=== PATIENT | female | born 1985 | race Two or more races ===

== ENCOUNTER 2020-01-06 10:30 | Inpatient (IN) | payer OTHER ==
[2020-01-06] MEDS ORDERED: CITRIC ACID/SODIUM CITRATE 30 ML UNIT-DOSE CUP PO ONE ×2 (11:15→14:29)
[2020-01-06] MEDS ORDERED: ELECTROLYTE-148 SOLN 500 ML IV SCH (11:15)
[2020-01-06 11:38] VITALS: BMI 24.9
[2020-01-06] MEDS ORDERED: ELECTROLYTE-148 SOLN 1,000 ML IV SCH (11:45)
[2020-01-06] MEDS ORDERED: OXYTOCIN 20 UNITS in 0.9% NS 20 UNIT/1,000 ML INFUS.BAG IV ONE ×2 (12:53→15:10)
[2020-01-06] MEDS ORDERED: ePHEDrine SULFATE 50 MG/1 ML AMPULE ONE (13:03)
[2020-01-06] MEDS ORDERED: morphine SULFATE/PF 0.5 MG/ML (2cc Syringe - QUVA) ONE (13:03)
[2020-01-06] MEDS ORDERED: IBUPROFEN 800 MG/8 ML IJ IVPB PRN (14:24)
[2020-01-06] MEDS ORDERED: SENNOSIDES/DOCUSATE COMBO (SENNA PLUS) TABLET (UD) PO PRN (14:24)
[2020-01-06] MEDS ORDERED: METHYLERGONOVINE MALEATE 0.2 MG/1 ML AMP IM PRN (14:24)
[2020-01-06] MEDS ORDERED: oxyCODONE HCL 5 MG TABLET PO PRN ×2 (14:24)
[2020-01-06] MEDS ORDERED: morphine SULFATE/PF 0.5 MG/ML (2cc Syringe - QUVA) EP ONE (14:25)
--- NOTE | 2020-01-06 14:33 | HP ---
Past Medical History - Admission Chief Complaint: repeat lt c s , btl History of Present Illness: none History Source: Patient Limitations to Obtaining History: No Limitations - Past Medical History FACETER: No: Alzheimer's, CVA, Dementia, Migraine, Multiple Sclerosis, Peripheral Neuropathy, Parkinson's, Seizure, Syncope, TIA, Vertigo, Other Cardiovascular: No: AFIB, Aneurysm, Aortic Insufficiency, Aortic Stenosis, CAD, CHF, Deep Vein Thrombosis, HTN, Hyperlipdemia, OK, Mitral Insufficiency, Mitral Stenosis, Murmur, Pulmonary Hypertension, Other Pulmonary: No: Asthma, Bronchitis, Cancer, COPD, O2 Dependent, Pneumonia, Previously Intubated, Pulmonary Embolus, Pulmonary Fibrosis, Sleep Apnea, Other Gastrointestinal: No: Ascites, Cancer, Constipation, Crohn's Disease, Diverticulitis, Diverticulosis, Esophageal Varices, Gastritis, GERD, GI Bleed, Hemorrhoids, Hiatal Hernia, Inflamatory Bowel Disease, Irritable Bowel Disease, Pancreatitis, Peptic Ulcer Disease, Ulcerative Colitis, Other Hepatobiliary: No: Cirrhosis, Cholelithiasis, Cholecystitis, Choledocholithiasis , Hepatitis A, Hepatitis B, Hepatitis C, Other Renal/: No: Renal Failure, Renal Inusuff, BPH, Cancer, Hematuria, Hemodialysis , Neurogenic Bladder, Renal Calculi, UTI, Other Reproductive: No: Ectopic , Endometriosis, Fibroids, PID, Polycystic Ovary Syndrome, Postmenopausal, Other ...: 2 ...Para: 1 ...Term: 1 ...: 0 ...Spon : 0 ...EDC by Sono: 01/13/20 Heme/Onc: No: Anemia, B12 Deficiency, Bleeding Disorder, Cancer, Current Chemotherapy, Current Radiation Therapy, Hemochromatosis, Hypercoaguable State, Myeloproliferative Synd, Sickle Cell Disease, Sickle Cell Trait, Thrombocytopenia, Other Infectious Disease: No: AIDS, C-Diff, Herpes Zoster, HIV, MRSA, STD's, Tuberculosis, VREF, Other Psych: No: Addictions, Anxiety, Bipolar, Depression, Panic, Psychosis, Schizophrenia, Other Musculoskeletal: No: Bursitis, Chronic low back pain, Hemiparesis, Hemiplegia, Osteoarthritis, Paraplegia, Other Rheumatology: No: Fibromyalgia, Gout, Lupus, Rheumatoid Arthritis, Sarcoidosis, Vasculitis, Other ENT: No: Allergic Rhinitis, Sinusitis, Other Endocrine: No: Thong's Disease, Jaylon's Disease, Diabetes Insipidus, Diabetes Mellitus, Hyperparathyroidism, Hyperthyroidism, Hypothyroidism, Osteopenia, SIADH, Other Dermatology: No: Basal Cell, Cellulitis, Eczema, Melanoma, Psoriasis, Squamous Cell, Other - Past Surgical History Past Surgical History: Yes: Hx Myomectomy: No Hx Transabdominal Cerclage: No - Advance Directives Advance Directives: Yes: Living Will - Smoking History Smoking history: Never smoked Have you smoked in the past 12 months: No - Alcohol/Substance Use Hx Alcohol Use: No History of Substance Use: reports: None - Social History Usual Living Arrangement: Yes: With Significant Other Do you think of yourself as: Straight/Heterosexual ADL: Independent History of Recent Travel: No Home Medications - Allergies Allergies/Adverse Reactions: Allergies Allergy/AdvReac Type Severity Reaction Status Date / Time No Known Allergies Allergy Verified 01/06/20 11:08 - Home Medications Home Medications: Ambulatory Orders Vitamins (Sjr) - 1 tab PO DAILY 01/06/20 Family Medical History Family History: Denies Review of Systems - Review of Systems Constitutional: reports: No Symptoms Eyes: reports: No Symptoms HENT: reports: No Symptoms Neck: reports: No Symptoms Cardiovascular: reports: No Symptoms Respiratory: reports: No Symptoms Gastrointestinal: reports: No Symptoms Genitourinary: reports: No Symptoms Breasts: reports: No Symptoms Reported Musculoskeletal: reports: No Symptoms Integumentary: reports: No Symptoms Neurological: reports: No Symptoms Endocrine: reports: No Symptoms Hematology/Lymphatic: reports: No Symptoms Psychiatric: reports: No Symptoms Physical Exam - Maternity Constitutional: Yes: Well Nourished, No Distress, Calm Eyes: Yes: WNL, Conjunctiva Clear, EOM Intact HENT: Yes: WNL, Atraumatic, Normocephalic Neck: Yes: WNL, Supple, Trachea Midline Cardiovascular: Yes: WNL, Regular Rate and Rhythm Lungs: Clear to auscultation Breast(s): Yes: WNL - Abdominal Exam/OB Fundal Height: 38 Number of Fetuses: Single Presentation: Vertex Contractions: Yes Regularity: Irregular Intensity: Unaware Monitor Mode: External Heart Rate Location: [facility] Category: I Accelerations: Uniform Decelerations: None - Vaginal Exam/OB Vaginal Bleediing: No Speculum Exam: No Dilatation (cm): 1 Effacement (%): 50 Amniotic Membrane Status: Intact Presentation: Vertex/Position Station: -2 - Physical Exam Musculoskeletal: Yes: WNL Extremities: Yes: WNL Edema: Yes Edema: LUE: 1+, RUE: 1+, LLE: 1+, RLE: 1+ Integumentary: Yes: WNL Deep Tendon Reflex Grade: Normal +2 ...Motor Strength: WNL Psychiatric: Yes: WNL, Alert, Oriented Hemorrhage Risk Assessment - Risk Factors High Risk Factors: Yes: None Risk Score: 0 Risk Level: Low Risk Assessment/Plan for repeat lt c s , btl
--- NOTE | 2020-01-06 14:34 | OP ---
Operative Note - Note: Operative Date: 01/06/20 Pre-Operative Diagnosis: repeat lt c s , btl Operation: same Post-Operative Diagnosis: Same as Pre-op Surgeon: Pedro Valentine Toolsmith: Rl Damon Anesthesiologist/WATERPROOFING SUPERVISOR: Sobeida Taylor MD Anesthesia: Spinal Estimated Blood Loss (mls): 600 (no complications ) Operative Report Dictated: Yes
[2020-01-06] MEDS ORDERED: ONDANSETRON 4 MG/2 ML VIAL ONE (15:10)
[2020-01-06] MEDS: ONDANSETRON 4 MG/2 ML VIAL IVPUSH PRN ×2 (15:20→21:18)
[2020-01-06] MEDS: OXYTOCIN 20 UNITS in 0.9% NS 20 UNIT/1,000 ML INFUS.BAG IV SCH (15:35)
[2020-01-07] MEDS: OXYTOCIN 20 UNITS in 0.9% NS 20 UNIT/1,000 ML INFUS.BAG IV SCH (06:32)
[2020-01-07] MEDS: ENOXAPARIN NA (PORCINE) 40 MG/0.4 ML DISP.SYRIN SQ SCH (09:01)
[2020-01-07 09:19] LABS: BASO % 0.2 % (0-2.0); EOS % 0.1 % (0-4.5); HEMATOCRIT 26.8 % (32.4-45.2); HEMOGLOBIN 9.1 GM/dL (10.7-15.3); LYMPH % 15.4 % (8-40); MCH 27.8 pg (25.7-33.7); MCHC 33.8 g/dl (32.0-36.0); MEAN CELL VOLUME 82.1 fl (80-96); MONO % 5.7 % (3.8-10.2); NEUT % 78.6 % (42.8-82.8); PLATELET COUNT 178 K/MM3 (134-434); RBC 3.26 M/mm3 (3.60-5.2); RDW 15.7 % (11.6-15.6); WHITE BLOOD COUNT 12.9 K/mm3 (4.0-10.0)
--- NOTE | 2020-01-07 13:58 | PN ---
Progress Note (short form) - Note Progress Note: Anesthesiology 34 y.o. woman POD #1 s/p C/S and bilateral tubal ligation with spinal anesthesia. Doing well, no ON issues. No residual anesthesia. Pain under control. VSS. Stable post-operative course. Continue management as per primary team.
[2020-01-07] MEDS ORDERED: BISACODYL 10 MG SUPP.RECT RC PRN (14:25)
--- NOTE | 2020-01-07 14:25 | PN ---
Post Progress Note Post Day: 1 Type of Delivery: Repeat C/S Vital Signs: Vital Signs Temperature 98.4 F 01/07/20 10:00 Pulse Rate 71 01/07/20 10:00 Respiratory Rate 18 01/07/20 12:00 Blood Pressure 108/63 01/07/20 10:00 O2 Sat by Pulse Oximetry (%) Breast Exam: Yes: Soft Uterus: Yes: Fundus Firm Incision: Yes: Dressing dry and intact, Sutures intact Abdomen/GI: Yes: Abdomen soft, Passing flatus, Tolerating PO Lochia: Yes: Serosa Lochia, amount: Small Extremities: Yes: Calves non-tender Perineum: Yes: Intact Activity: Ambulating - Labs Labs: CBC WBC 12.9 K/mm3 (4.0-10.0) H 01/07/20 08:24 RBC 3.26 M/mm3 (3.60-5.2) L 01/07/20 08:24 Hgb 9.1 GM/dL (10.7-15.3) L 01/07/20 08:24 Hct 26.8 % (32.4-45.2) L 01/07/20 08:24 MCV 82.1 fl (80-96) 01/07/20 08:24 MCH 27.8 pg (25.7-33.7) 01/07/20 08:24 MCHC 33.8 g/dl (32.0-36.0) 01/07/20 08:24 RDW 15.7 % (11.6-15.6) H 01/07/20 08:24 Plt Count 178 K/MM3 (134-434) 01/07/20 08:24 MPV 9.0 fl (7.5-11.1) 01/07/20 08:24 Absolute Neuts (auto) 10.2 K/mm3 (1.5-8.0) H 01/07/20 08:24 Neutrophils % 78.6 % (42.8-82.8) 01/07/20 08:24 Lymphocytes % 15.4 % (8-40) 01/07/20 08:24 Monocytes % 5.7 % (3.8-10.2) 01/07/20 08:24 Eosinophils % 0.1 % (0-4.5) 02/15/20 08:24 Basophils % 0.2 % (0-2.0) 01/07/20 08:24 Nucleated RBC % 0 % (0-0) 01/07/20 08:24 Assessment/Plan po iron pills
[2020-01-07] MEDS: FERROUS SO4 325 MG TABLET (FP) PO SCH (21:03)
--- NOTE | 2020-01-08 07:37 | PN ---
Post Progress Note Post Day: 2 Type of Delivery: Repeat C/S Vital Signs: Vital Signs Temperature 99.0 F 01/07/20 21:04 Pulse Rate 80 01/07/20 21:04 Respiratory Rate 20 01/07/20 21:04 Blood Pressure 123/62 01/07/20 21:04 O2 Sat by Pulse Oximetry (%) Breast Exam: Yes: Soft Uterus: Yes: Fundus Firm, Fundus below umbilicus Incision: Yes: Dressing dry and intact, Sutures intact Abdomen/GI: Yes: Abdomen soft, Passing flatus, Tolerating PO Lochia: Yes: Serosa Lochia, amount: Small Extremities: Yes: Calves non-tender Perineum: Yes: Intact (doing well. dc pt home tomorrow) Activity: Ambulating - Labs Labs: CBC WBC 12.9 K/mm3 (4.0-10.0) H 01/07/20 08:24 RBC 3.26 M/mm3 (3.60-5.2) L 01/07/20 08:24 Hgb 9.1 GM/dL (10.7-15.3) L 01/07/20 08:24 Hct 26.8 % (32.4-45.2) L 01/07/20 08:24 MCV 82.1 fl (80-96) 01/07/20 08:24 MCH 27.8 pg (25.7-33.7) 01/07/20 08:24 MCHC 33.8 g/dl (32.0-36.0) 01/07/20 08:24 RDW 15.7 % (11.6-15.6) H 01/07/20 08:24 Plt Count 178 K/MM3 (134-434) 01/07/20 08:24 MPV 9.0 fl (7.5-11.1) 01/07/20 08:24 Absolute Neuts (auto) 10.2 K/mm3 (1.5-8.0) H 01/07/20 08:24 Neutrophils % 78.6 % (42.8-82.8) 01/07/20 08:24 Lymphocytes % 15.4 % (8-40) 01/07/20 08:24 Monocytes % 5.7 % (3.8-10.2) 01/07/20 08:24 Eosinophils % 0.1 % (0-4.5) 01/07/20 08:24 Basophils % 0.2 % (0-2.0) 01/07/20 08:24 Nucleated RBC % 0 % (0-0) 01/07/20 08:24
--- NOTE | 2020-01-08 07:39 | DS ---
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 Vital Signs: Vital Signs Temperature 99.0 F 01/07/20 21:04 Pulse Rate 80 01/07/20 21:04 Respiratory Rate 20 01/07/20 21:04 Blood Pressure 123/62 01/07/20 21:04 O2 Sat by Pulse Oximetry (%) Constitutional: Yes: Well Nourished, No Distress, Calm Eyes: Yes: WNL, Conjunctiva Clear, EOM Intact HENT: Yes: WNL, Atraumatic, Normocephalic Neck: Yes: WNL, Supple, Trachea Midline Cardiovascular: Yes: WNL, Regular Rate and Rhythm Respiratory: Yes: WNL, Regular, CTA Bilaterally Gastrointestinal: Yes: WNL, Normal Bowel Sounds, Soft ...Rectal Exam: Yes: WNL Renal/: Yes: WNL Pelvis: Yes: WNL External Genitalia: Yes: Normal Internal Exam Deferred: Yes Vaginal Exam: Yes: Normal Cervix: Yes: Normal Uterus: Yes: Normal Adnexa: Normal: Bilateral ....Post : Yes: Uterus firm, Uterus non-tender Breast(s): Yes: WNL Musculoskeletal: Yes: WNL Extremities: Yes: WNL Edema: No Edema: LUE: 1+, RUE: 1+, LLE: 1+, RLE: 1+ Integumentary: Yes: WNL Wound/Incision: Yes: Clean/Dry, Well Approximated Neurological: Yes: WNL, Alert, Oriented ...Motor Strength: WNL Psychiatric: Yes: WNL, Alert, Oriented Labs: CBC, BMP 01/07/20 08:24 Delivery - Delivery Type of Anesthesia: Spinal Episiotomy/Laceration: None EBL (cc): 600 Delivery, Single - Stages of Labor Date of Delivery: 01/06/20 Time of Delivery: 13:31 Time Placenta Delivered: 13:32 - Condition of Dropper Tank Storage/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 Present: Yes Name: Nicole Goyal Gender: Male Weight: 3.544 kg Position: Right, OT Total Hours ROM (Hrs/Mins): 1 min - 1 Minute Total Score: 9 5 Minutes Total Score: 9 - [place] Feeding Plan Initial Plan: Exclusive throughout hospitalization Discharge Summary Problems reviewed: Yes Reason For Visit: Procedures: Principal: repeat lt c s Other Procedures: none Hospital Course: uneventful Health Concerns: none Plan of Treatment: oob as much as possible Goals: return to work in 8 weeks Condition: Good - Instructions Diet, Activity, Other Instructions: Physical activity Resume your normal everyday activity as tolerated no heavy lifting or exercise until seen by your surgeon. You may walk unlimited lópez of and climb stairs. You may resume driving the car when you feel safe and comfortable behind the wheel. No sexual activity as instructed. Wound care If you have a bandage, leave it on, and keep dry for 48-72 hours. After that time discard the outer bandage. If they are tapes on the skin under the out of bandage leave them in place. They will peel off in the next 7 to 10 days. Do Not Peel them off. You may shower the day after surgery. If there are tapes present on the skin, you may shower over them. Diet There are no dietary restrictions. Eat healthy, high-fiber foods. Drink 6 to 8 glasses of liquid each day. This will assist in keeping your bowels are regular. Pain management You may take Tylenol or acetaminophen or Ibuprofen (for example, Motrin, Advil etc.) from my pain prescription medication is ordered should be taken as prescribed for moderate to severe pain. Call MD for any of the following: call evita pa for 2 weeks appointment Severe pain not relieved by medication Fever of 101 or higher Excessive bleeding or drainage on dressing Inability to urinate Disposition: HOME - Home Medications Comprehensive Discharge Medication List: Ambulatory Orders Vitamins (Sjr) - 1 tab PO DAILY 01/06/20 Prescription Drug Monitoring Program (I-STOP) results: I-STOP reviewed and no issues identified
[2020-01-08] MEDS: SIMETHICONE 80 MG TAB.CHEW (FP) PO PRN ×3 (08:04→19:59)
[2020-01-08] MEDS: IBUPROFEN 600 MG TABLET (FP) PO PRN ×3 (08:04→19:59)
[2020-01-08] MEDS: ACETAMINOPHEN 325 MG TABLET (FP) PO PRN ×3 (08:05→19:59)
[2020-01-08] MEDS: ENOXAPARIN NA (PORCINE) 40 MG/0.4 ML DISP.SYRIN SQ SCH (10:31)
[2020-01-08] MEDS: FERROUS SO4 325 MG TABLET (FP) PO SCH ×2 (10:31→21:34)
[2020-01-08 20:01] VITALS: BP 123/76; PULSE 80; TEMP 97.8
[2020-01-09] MEDS: FERROUS SO4 325 MG TABLET (FP) PO SCH (10:27)
[2020-01-09] MEDS: IBUPROFEN 600 MG TABLET (FP) PO PRN (10:27)
[2020-01-09] MEDS: ENOXAPARIN NA (PORCINE) 40 MG/0.4 ML DISP.SYRIN SQ SCH (10:28)
[2020-01-09] MEDS: ACETAMINOPHEN 325 MG TABLET (FP) PO PRN (10:28)
--- NOTE | 2020-01-10 10:29 | PATH ---
Surgical Pathology Report Patient Name: CAROL DIAZ [facility]. Rec. 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 PLACENTA, SECTION: 452 G THIRD TRIMESTER PLACENTA WITH TRIVASCULAR UMBILICAL CORD AND UNREMARKABLE PLACENTAL MEMBRANES. B. FALLOPIAN TUBE, RIGHT, PARTIAL EXCISION: FULL LUMINAL PORTION OF FALLOPIAN TUBE. C. FALLOPIAN TUBE, LEFT, PARTIAL EXCISION: FULL LUMINAL PORTION OF FALLOPIAN TUBE. Electronically Signed Rachel Porter M.D. Gross Description A. The specimen is received fresh labeled placenta and is a 452 gram, 20.0 x 15.0 x 2.2 cm. placenta with attached membranes and umbilical cord. The attached membranes are noel, translucent with focal opacities and insert marginally. The umbilical cord measures 66 cm. in length and averages 1.0 cm. in diameter. The cord inserts eccentrically, 6 cm. to the nearest margin. There is a true knot identified within the umbilical cord. Cut surface of the umbilical cord reveals 3 vessels. The surface is maxwell-blue with minimal fibrin deposition and appropriate caliber vessels. The maternal surface is red-brown with focal defects. Sectioning reveals a 1.0 cm in greatest dimension hemorrhagic lesion. The remaining placental parenchyma is red-brown and spongy. Workforce Advisor sections are submitted in three cassettes as follows: 1-membrane roll and umbilical cord; 2-lesion; [id number] section of placenta. B. Received in formalin labeled "right fallopian tube," is a 0.9 cm in length portion of fallopian tube. No fimbria are present. The outer surface is noel-pink and smooth. Sectioning reveals an unremarkable lumen. Workforce Advisor sections are submitted in one cassette. C. Received in formalin labeled "left portion of fallopian tube," is a 1.7 cm in length portion of fallopian tube. No fimbria are present. The outer surface is noel-pink and smooth. Sectioning reveals an unremarkable lumen. Workforce Advisor sections are submitted in one cassette. 01/09/2020 [facility]01/09/2020
== END 2020-01-09 11:45 | disposition home or self-care (01) | DRG 540 ==
LOC: JLDR 10:30 → J3W 16:05
PROVIDERS: ADMIT Obstetrics & Gynecology; ATTEND Obstetrics & Gynecology
PROC: 10D00Z1 Extraction of Products of Conception, Low, Open Approach (ICD-10-PCS; principal; 2020-01-06)
PROC: 0UL70ZZ Occlusion of Bilateral Fallopian Tubes, Open Approach (ICD-10-PCS; 2020-01-06)
DX: O34.211 Maternal care for low transverse scar from previous cesarean delivery (principal); Z3A.39 39 weeks gestation of pregnancy; Z37.0 Single live birth; Z30.2 Encounter for sterilization
CPT/HCPCS: 36415; 85025; 88302-TC; 88307-TC